=== PATIENT | male | born 1995 | race Caucasian/White ===

== ENCOUNTER 2022-06-20 12:03 | Emergency (ER) | payer SELFPAY ==
[~2022-06-20] VITALS: Ht 182.9 cm; Wt 116.1 kg
[2022-06-20] MEDS ORDERED: IBUPROFEN 600 MG TAB PO STA ×2 (15:12→15:13)
[2022-06-20 15:26] VITALS: BP 118/72
[2022-06-20] MEDS ORDERED: IBUPROFEN 600 MG TAB ONE (15:32)
== END 2022-06-20 15:29 | disposition home or self-care (01) ==
LOC: FSED 12:07
DX: S29.011A Strain of muscle and tendon of front wall of thorax, initial encounter (principal); S29.012A Strain of muscle and tendon of back wall of thorax, initial encounter; X50.1XXA Overexertion from prolonged static or awkward postures, initial encounter; Y99.0 Civilian activity done for income or pay; J45.909 Unspecified asthma, uncomplicated; F17.210 Nicotine dependence, cigarettes, uncomplicated
CPT/HCPCS: 71046; 93005; 99283

== ENCOUNTER 2023-01-25 16:42 | Emergency (ER) | payer SELFPAY ==
[~2023-01-25] VITALS: Ht 182.9 cm; Wt 123.4 kg
[2023-01-25] MEDS ORDERED: NAPROSYN500 MG PO (18:06)
[2023-01-25] MEDS ORDERED: CLEOCIN HCL300 MG PO (18:06)
[2023-01-25 18:18] VITALS: O2SAT 95
== END 2023-01-25 18:18 | disposition home or self-care (01) ==
LOC: FSED 16:48
DX: R60.9 Edema, unspecified (principal); K04.7 Periapical abscess without sinus; J45.909 Unspecified asthma, uncomplicated; E66.9 Obesity, unspecified; F17.210 Nicotine dependence, cigarettes, uncomplicated
CPT/HCPCS: 99283